=== PATIENT | female | born 1930 | race Caucasian/White ===

== ENCOUNTER 2017-10-24 20:59 | Inpatient (IN) | payer MEDICARE, MEDICAID ==
[2017-10-24] MEDS ORDERED: Ondansetron ODT 4 MG TAB ONE (21:19)
[2017-10-25] MEDS ORDERED: Hydrocortisone Sod Succ/PF 100 mg/2 ml Vial ONE (00:24)
[2017-10-25] MEDS ORDERED: Hydrocortisone Sod Succ/PF 100 mg/2 ml Vial IVP SCH (00:30)
[2017-10-25 00:58] LABS: #Lymphocytes 0.9 thou/uL (1.20-3.40); #Neutrophils 17.3 thou/uL (1.40-6.50); %Basophils 0.2 % (0.0-1.0); %Eosinophils 0.2 % (0.0-10.0); %Lymphocytes 4.6 % (21.0-51.0); %Monocytes 4.9 % (0.0-10.0); %Neutrophils 90.2 % (42.0-75.0); Hemoglobin 12.9 g/dL (12.0-16.0); Mean Corpuscular HGB CONC 31.8 g/dL (32.0-36.0); Mean Corpuscular Hemoglobin 29.2 pg (27.0-31.0); Mean Corpuscular Volume 91.7 fl (81.0-99.0); Mean Platelet Volume 6.7 fL (7.4-10.4); Platelet Count 241 thou/uL (130-400); RBC Distribution Width 13.9 % (11.5-14.5); Red Blood Cell (RBC) Count 4.42 mill/uL (4.20-5.40); White Blood Cell (WBC) Count 19.2 thou/uL (4.8-10.8)
[2017-10-25] MEDS ORDERED: Calcium Carbonate 500 MG ChewTAB PO PRN (01:07)
[2017-10-25] MEDS ORDERED: Ondansetron ODT 4 MG TAB SL PRN (01:07)
[2017-10-25] MEDS ORDERED: Acetaminophen 325 MG TAB PO PRN ×2 (01:07)
[2017-10-25] MEDS ORDERED: Senokot 8.6 MG TAB PO PRN (01:07)
[2017-10-25] MEDS ORDERED: Acetaminophen 650 MG Suppository PR PRN (01:07)
[2017-10-25] MEDS ORDERED: Ondansetron HCl/PF 4 MG/2 ML Vial IVP PRN ×2 (01:07)
[2017-10-25] MEDS ORDERED: Mag-Al 1200 mg/1200 mg/30 ML UDCUP PO PRN (01:07)
[2017-10-25] MEDS ORDERED: Piperacillin/Tazobactam 3.375 GM in Sodium Chloride 0.9% 100 ML IVPB SCH ×2 (01:15→06:00)
[2017-10-25] MEDS ORDERED: Sodium Chloride 0.9% 1,000 ML IV SCH (01:15)
[2017-10-25] MEDS ORDERED: DOPamine 400 MG/D5W 250 ML 250 ML IVPB SCH ×2 (01:15)
[2017-10-25] MEDS: Dextrose 5 % And 0.9 % NaCl 1,000 ML IV SCH ×3 (01:17→18:39)
[2017-10-25 01:20] LABS: ALT (SGPT) 26 U/L (8-55); AST (SGOT) 38 U/L (5-34); Albumin 3.4 g/dL (3.4-4.8); Alkaline Phosphatase 88 U/L (40-150); Anion Gap 15 mmol/L (10-20); BUN (Urea Nitrogen) 16 mg/dL (9.8-20.1); Bilirubin, Total 0.5 mg/dL (0.2-1.2); CRP (Inflammatory) 3.54 mg/dL (= or < 0.5); Calc. Creatinine Clearance 0 mL/min (70-130); Calcium 8.8 mg/dL (7.8-10.44); Carbon Dioxide 15 mmol/L (23-31); Chloride 111 mmol/L (98-107); Estimated GFR-MDRD 63; Glucose 209 mg/dL (83-110); Magnesium 1.7 mg/dL (1.6-2.6); Phosphorus 4.8 mg/dL (2.3-4.7); Potassium 4.7 mmol/L (3.5-5.1); Protein, Total 6.4 g/dL (6.0-8.3); Sodium 136 mmol/L (136-145)
--- NOTE | 2017-10-25 01:36 | HP ---
DATE OF ADMISSION: 10/24/2017 The patient was seen and examined on 10/24/2017. CHIEF COMPLAINT: Shortness of breath. PRIMARY CARE PHYSICIAN: Fátima Llanos MD HISTORY OF PRESENT ILLNESS: The patient is an 86-year-old white female with dementia and lung cancer in the past, presented to the emergency room at [facility] with above complaint. The patient is a poor historian. History was obtained from the family at the bedside. No records fr om the halfway were found. The patient currently resides at [facility]. She is currently on no medications per son, who is at the bedside. She ambulates with the help of a walker. The patient was found to have shortness of breath, for which EMS was called at the halfway. At the emergency room, she was found to have hypotension with O2 saturation of 87% on facemask. Blood p ressure continuously dropped in the emergency room to 63/39. She was subsequently started on dopamin e drip. Her workup in the emergency room was consistent with septic shock/severe sepsis from possibl e UTI. Her lactic acid in the emergency room was 5.2. She received vancomycin and Zosyn with 30 mL per kilogram bolus. She was then transferred to this facility. At this time, the patient is currently on 7.5 mg of dopamine. Her blood pressure is in systolic 80s- 90s. PAST MEDICAL HISTORY: 1. Dementia. 2. Lung cancer. 3. Dysautonomic syndrome. 4. History of thrombocytopenia. PAST SURGICAL HISTORY: 1. Hysterectomy. 2. Tonsillectomy. 3. Cholecystectomy. ALLERGIES: No known drug allergies. CURRENT MEDICATIONS: To be verified with the halfway. No list was sent to this facility. SOCIAL HISTORY: As discussed above. No alcohol, tobacco, or drug use. She is a DO NOT RESUSCITATE. There is out of hospital DNR in the chart. The son makes the decision. FAMILY HISTORY: Negative for heart disease. REVIEW OF SYSTEMS: Cannot be reliably obtained from the patient due to current cognitive status. PHYSICAL EXAMINATION: VITAL SIGNS: As discussed above. Her initial vital signs at [place] showed temperature of 96.6 w ith respiration of 36, pulse rate of 114 with a blood pressure 91/65 with O2 saturation 87% on facema sk. GENERAL: 86-year-old female in no apparent distress. Mentation somewhat improved after IV fluids. HEENT: Head, atraumatic and normocephalic. Sclerae are anicteric. Dry mucous membranes. No oral l esion. NECK: Supple. No JVD appreciated. No carotid bruit. LUNGS: Showed scattered rhonchi with diminished air entry on the right side. HEART: S1, S2 present. Regular rate and rhythm, tachycardic. 2/6 systolic murmur over the mitral a uri. ABDOMEN: Soft. Bowel sounds present. EXTREMITIES: Trace edema in bilateral lower extremities. SKIN: Warm and dry. LYMPH NODES: No palpable lymph nodes in the neck. PERIPHERAL VASCULAR: Radial pulse is palpable bilaterally, low volume. NEUROLOGY AND PSYCHIATRY: Could not be reliably done due to current cognitive status. LABORATORY AND X-RAY FINDINGS: 1. EKG by my review showed sinus tachycardia. 2. Chest x-ray by my review showed right-sided lung mass with aortic tortuosity. No infiltrate note d. 3. Urinalysis showed 21-50 wbc's with moderate leukocyte esterase, 3+ bacteria, lactic acid as discu ssed above. Troponin in the indeterminate range of 0.099. BUN 13, creatinine 0.72. 4. WBC 16.7 with a platelet count of 268, hemoglobin 12.7. 5. Blood cultures and urine cultures have been sent. 6. Stool for occult blood was positive. IMPRESSION: 1. Severe sepsis with acute organ dysfunction/septic shock, suspected secondary to urinary tract inf ection. 2. Acute hypoxic respiratory failure with a history of lung cancer. Pulmonary embolism is a possibi lity. 3. Metabolic acidosis secondary to lactic acidosis from sepsis. 4. Chronic kidney disease, stage 2. 5. Indeterminate troponins, secondary to sepsis. 6. Dementia. 7. History of lung cancer. 8. Dysautonomic syndrome. 9. Hypotension requiring pressors. 10. Hemoccult positive stool at the emergency room today. PLAN: The patient will be monitored in the intermediate care unit. We will continue dopamine. I norman d an extensive discussion with the son and other family members. They want to continue dopamine thro ugh the peripheral IV line. They do not want central line at this time. Her blood pressure is in sy stolic 80s-90s at this time. We will continue vancomycin and Zosyn with dopamine. We will add IV fl uids. We will add stress dose steroids temporarily. She may be having pulmonary embolism; however, her stool for occult blood was positive. She may not be a candidate for anticoagulation given her ag e as well. We will monitor overnight. Critical Care will be consulted. We will repeat lactic acid in a.m. Plan of care was discussed with the patient and the family members in detail. They stated understand ing.
[2017-10-25 01:38] VITALS: BMI 22.1
[2017-10-25] MEDS ORDERED: Vancomycin HCl 1 GM in Premix Bag 1 BAG IVPB SCH (02:00)
[2017-10-25] MEDS: Ondansetron ODT 4 MG TAB PO PRN ×2 (02:37→10:05)
--- NOTE | 2017-10-25 03:58 | PDOC.EVN ---
Event Note - Event Note Event Note: Advance care planning d/w with son and other family members in ER on 10/24/17. Diagnosis - Septic shock. Patient will stay DNR. No central line per family. Will continue Dopamine for now. Will add IVF/Stress dose steroids. Total time spent for advance care planning was 20 mins.
[2017-10-25] MEDS: Piperacillin/Tazobactam 3.375 GM in Sodium Chloride 0.9% 100 ML IVPB SCH ×3 (05:33→18:40)
[2017-10-25] MEDS ORDERED: Sodium Chloride 0.65% Nasal 44 ML BOT EA NARE PRN (07:45)
[2017-10-25] MEDS ORDERED: Chloraseptic Spray 180 ml Bottle PO PRN (07:45)
[2017-10-25] MEDS ORDERED: Milk Of Magnesia 30 ML UDCUP PO PRN (07:45)
[2017-10-25] MEDS ORDERED: Loratadine 10 MG TAB PO PRN (07:45)
[2017-10-25] MEDS ORDERED: Artificial Tears 18 DROP/0.9 ML EA EYE PRN (07:45)
[2017-10-25] MEDS ORDERED: Diabetic Tussin 200 MG/10 ML UDCUP PO PRN (07:45)
[2017-10-25] MEDS ORDERED: Eucerin (Mineral Oil/Petrolatum,White) 30 gm Jar TOP PRN (07:45)
[2017-10-25] MEDS ORDERED: Loperamide HCl 2 MG CAP PO PRN (07:45)
--- NOTE | 2017-10-25 08:19 | ULT ---
BILATERAL RENAL ULTRASOUND: Date: 10/25/17 COMPARISON: None. HISTORY: Septic shock, urinary tract infection, evaluate for obstructive uropathy. FINDINGS: Left kidney measures 11.0 cm in craniocaudal dimension and demonstrates no stone, hydronephrosis, or mass. Urinary bladder appears grossly unremarkable, but is poorly assessed secondary to decompression. Right kidney measures 10.1 cm in craniocaudal dimension and demonstrates no evidence for stone, hydro nephrosis, or mass. IMPRESSION: No acute findings. POS: [facility]HT[facility]
[2017-10-25] MEDS ORDERED: Famotidine 20 MG TAB PO SCH (09:00)
[2017-10-25 09:02] LABS: #Lymphocytes 1.3 thou/uL (1.20-3.40); #Monocytes 1.3 thou/uL (0.11-0.59); #Neutrophils 15.5 thou/uL (1.40-6.50); %Basophils 0.1 % (0.0-1.0); %Eosinophils 0.1 % (0.0-10.0); %Lymphocytes 7.4 % (21.0-51.0); %Monocytes 7.1 % (0.0-10.0); %Neutrophils 85.3 % (42.0-75.0); Hemoglobin 12.5 g/dL (12.0-16.0); Mean Corpuscular HGB CONC 31.6 g/dL (32.0-36.0); Mean Corpuscular Hemoglobin 29.3 pg (27.0-31.0); Mean Corpuscular Volume 92.8 fl (81.0-99.0); Mean Platelet Volume 6.7 fL (7.4-10.4); Platelet Count 211 thou/uL (130-400); RBC Distribution Width 13.9 % (11.5-14.5); Red Blood Cell (RBC) Count 4.28 mill/uL (4.20-5.40); White Blood Cell (WBC) Count 18.1 thou/uL (4.8-10.8)
[2017-10-25 09:07] LABS: Anion Gap 15 mmol/L (10-20); BUN (Urea Nitrogen) 17 mg/dL (9.8-20.1); Calc. Creatinine Clearance 39 mL/min (70-130); Calcium 8.6 mg/dL (7.8-10.44); Carbon Dioxide 16 mmol/L (23-31); Chloride 112 mmol/L (98-107); Estimated GFR-MDRD 57; Glucose 258 mg/dL (83-110); Potassium 4.9 mmol/L (3.5-5.1); Sodium 138 mmol/L (136-145)
[2017-10-25 09:08] LABS: Lactic Acid 5.8 mmol/L (0.5-2.2)
[2017-10-25 09:17] LABS: Troponin I 0.554 ng/mL (< 0.028)
[2017-10-25] MEDS: Docusate 100 MG CAP PO SCH ×2 (09:57→20:22)
[2017-10-25] MEDS: Hydrocortisone Sod Succ/PF 100 mg/2 ml Vial IVP SCH ×2 (10:04→20:21)
[2017-10-25] MEDS: Morphine 4 MG/ML VIAL SLOW IVP PRN ×2 (10:05→19:06)
--- NOTE | 2017-10-25 10:50 | PDOC.PN ---
- Subjective Encounter Start Date: 10/25/17 Encounter Start Time: 10:20 -: old records requested/rev Patient seen and examined for sepsis. No overnight events, family bedside - Objective Resuscitation Status: Resuscitation Status DNR:Do Not Resuscitate MAR Reviewed: Yes Vital Signs & Weight: Vital Signs (12 hours) Temp Pulse Resp BP Pulse Ox 10/25/17 07:39 97.0 F L 91 18 95 10/25/17 07:27 97.0 F L 91 18 84/54 L 96 10/25/17 03:00 97.8 F 108 H 18 151/74 H 96 10/25/17 00:00 97.4 F L 127 H 20 105/68 100 Weight Weight 128 lb 11.2 oz I&O: 10/24/17 10/25/17 10/26/17 06:59 06:59 06:59 Intake Total 750 Output Total 290 Balance 460 Result Diagrams: 10/25/17 08:30 10/25/17 08:30 Radiology Reviewed by me: Yes (chest xray) EKG Reviewed by me: Yes (nsr) Phys Exam - Physical Examination Constitutional: NAD HEENT: PERRLA, sclera anicteric dry MM Neck: no JVD, supple Respiratory: no wheezing, no rales, no rhonchi Cardiovascular: RRR, no significant murmur, no rub Gastrointestinal: soft, no distention, positive bowel sounds Musculoskeletal: no edema, pulses present unable to assess due to encephalopathy and dementia Psychiatric: normal affect Skin: no rash, normal turgor Dx/Plan (1) Encephalopathy acute Code(s): G93.40 - ENCEPHALOPATHY, UNSPECIFIED Status: Acute (2) Acute respiratory failure with hypoxia Code(s): J96.01 - ACUTE RESPIRATORY FAILURE WITH HYPOXIA Status: Acute (3) Demand ischemia Code(s): I24.8 - OTHER FORMS OF ACUTE ISCHEMIC HEART DISEASE Status: Acute (4) Hypotension Status: Acute (5) Lactic acidosis Code(s): E87.2 - ACIDOSIS Status: Acute (6) Occult blood positive stool Status: Acute (7) Sepsis with acute organ dysfunction Code(s): A41.9 - SEPSIS, UNSPECIFIED ORGANISM; R65.20 - SEVERE SEPSIS WITHOUT SEPTIC SHOCK Status: Acute (8) Septic shock Code(s): A41.9 - SEPSIS, UNSPECIFIED ORGANISM; R65.21 - SEVERE SEPSIS WITH SEPTIC SHOCK Status: Acute (9) CKD (chronic kidney disease) stage 2, GFR 60-89 ml/min Code(s): N18.2 - CHRONIC KIDNEY DISEASE, STAGE 2 (MILD) Status: Chronic (10) Dementia Code(s): F03.90 - UNSPECIFIED DEMENTIA WITHOUT BEHAVIORAL DISTURBANCE Status: Chronic (11) H/O: lung cancer Code(s): Z85.118 - PERSONAL HISTORY OF MALIGNANT NEOPLASM OF BRONCHUS AND LUNG Status: Chronic - Plan cont current plan of care, plan discussed w/ family, continue antibiotics * continue dopamin for low BP * family does not want central line * medication reviewed as below * symptomatic treatment * continue vancomycin and zosyn * echo for elevated troponin * add aspirin * repeat labs tomorrow * follow culture * prognosis guarded * pt is DNR * continue IVF. Review of Systems - Review of Systems Other: unable to review due to encephalopathy and dementia - Medications/Allergies Allergies/Adverse Reactions: Allergies Allergy/AdvReac Type Severity Reaction Status Date / Time No Known Allergies Allergy Verified 02/03/15 12:05 Medications: Current Medications Acetaminophen (Tylenol) 650 mg PO Q4H PRN PRN Reason: Headache/Fever or Pain Acetaminophen (Tylenol) 650 mg ND Q4H PRN PRN Reason: Headache/Fever or Pain Al Hydroxide/Mg Hydroxide (Maalox) 30 ml PO Q6H PRN PRN Reason: Heartburn or Indigestion Albuterol/Ipratropium (Duoneb) 3 ml NEB [id number] PRN PRN Reason: SOB &/or Wheezing Artificial Tears (Tears Naturale) 0 drop EA EYE PRN PRN PRN Reason: Dry Eyes Aspirin (Aspirin Chewable) 81 mg PO DAILY [facility] Calcium Carbonate (Tums) 1,000 mg PO Q4H PRN PRN Reason: Heartburn or Indigestion Docusate Sodium (Colace) 100 mg PO BID [facility] Last Admin: 10/25/17 09:57 Dose: Not Given Famotidine (Pepcid) 20 mg PO DAILY [facility] Last Admin: 10/25/17 09:57 Dose: Not Given Guaifenesin (Robitussin Sf) 200 mg PO Q4H PRN PRN Reason: Cough Hydrocortisone Sodium Succinate (Solu-Cortef) 50 mg IVP BID [facility] Last Admin: 10/25/17 10:04 Dose: 50 mg Dextrose/Sodium Chloride (D5 0.9% Ns) 1,000 mls @ 125 mls/hr IV .Q8H CHAZ Last Admin: 10/25/17 05:38 Dose: 1,000 mls Piperacillin Sod/Tazobactam (Sod 3.375 gm/ Sodium Chloride) 100 mls @ 200 mls/ hr IVPB Q6HR CHAZ Last Admin: 10/25/17 05:33 Dose: 100 mls Vancomycin HCl 750 mg/ Sodium (Chloride) 250 mls @ 200 mls/hr IVPB 1400 CHAZ Dopamine HCl/Dextrose (Dopamine/D5w) 250 mls @ 10.946 mls/hr IVPB INF CHAZ; 5 MCG/KG/MIN PRN Reason: Protocol Last Admin: 10/25/17 10:12 Dose: 250 mls Loperamide HCl (Imodium) 2 mg PO PRN PRN PRN Reason: Diarrhea/Loose Stools Loratadine (Claritin) 10 mg PO DAILYPRN PRN PRN Reason: Sinus Symptoms Magnesium Hydroxide (Milk Of Magnesium) 30 ml PO DAILYPRN PRN PRN Reason: Constipation Mineral Oil/White Petrolatum (Eucerin Cream) 0 gm TOP BIDPRN PRN PRN Reason: Dry Skin Miscellaneous Medication (Pharmacy To Dose) 1 each IVPB ONE PRN PRN Reason: Pharmacy to dose Stop: 11/04/17 01:06 Morphine Sulfate (Morphine) 2 mg SLOW IVP Q30MIN PRN PRN Reason: Breakthrough Pain Last Admin: 10/25/17 10:05 Dose: 2 mg Ondansetron HCl (Zofran Odt) 4 mg PO Q6H PRN PRN Reason: Nausea/Vomiting Last Admin: 10/25/17 10:05 Dose: 4 mg Ondansetron HCl (Zofran) 4 mg IVP Q6H PRN PRN Reason: Nausea/Vomiting Phenol (Chloraseptic [place] 180 Ml Bot) 0 ml PO PRN PRN PRN Reason: Sore Throat Senna (Senokot) 2 tab PO HSPRN PRN PRN Reason: Constipation Sodium Chloride ([place] Nasal [place] 0.65%) 0 ml EA NARE QIDPRN PRN PRN Reason: Nasal Congestion
--- NOTE | 2017-10-25 10:51 | CON ---
DATE OF CONSULTATION: 10/25/2017 Seventy minutes of time was spent performing this consultation. At that time, greater than 50% was s pent with the patient and/or in the patient's unit in the hospital. CONSULTING PHYSICIAN: Hospitalist group. REASON FOR CONSULTATION: IMCU placement. HISTORY OF PRESENT ILLNESS: This is an 86-year-old female from [place] who was brought to the [facility] yesterday with shortness of breath and hypotension. She lives in a residential. She was fo und to have urinary tract infection. Today, she is more awake. She says she has been having pain al dhiraj her right chest, extending down to her abdomen. She saw Dr. Stone Yang in the past. She was diagnosed with lung cancer about 2-1/2 years ago. This was by bronchoscopy. 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 She chose not to treat this and has had a relatively good quality of life since that time. PAST MEDICAL HISTORY: 1. Dementia. 2. Lung cancer. 3. Dysautonomic syndrome. 4. Thrombocytopenia. PAST SURGICAL HISTORY: Hysterectomy, tonsillectomy, cholecystectomy, bronchoscopy. ALLERGIES: None. SOCIAL HISTORY: Does not smoke, does not consume alcohol. She has a DNR order. FAMILY MEDICAL HISTORY: Negative. REVIEW OF SYSTEMS: Remarkable for pain, failure to thrive. MEDICATIONS PRIOR TO ADMISSION: List unavailable for review at this time. PHYSICAL EXAMINATION: VITAL SIGNS: Temperature 97.0, pulse 91, respirations 18, O2 sat 95% on 3 liters, blood pressure 84/ 54. She is currently on dopamine at 5 mcg per minute through a peripheral IV. GENERAL: She is awake and alert. She is nauseated and is vomiting. HEENT: Pupils react. Sclerae anicteric. Oropharynx clear. NECK: No adenopathy or JVD. LUNGS: Almost absent breath sounds in the right upper lobe, few breath sounds in the right lower lob e. Left side is clear. She has palpable pain over most of the rib cage in the right. CARDIOVASCULAR: S1, S2 regular. ABDOMEN: Soft. EXTREMITIES: No edema. LABORATORY DATA: White blood cell count 18.1, hematocrit 39.7, platelet count 211 with 85% neutrophi ls. Sodium 130, potassium 4.9, chloride 112, CO2 16, BUN 17, creatinine 0.9, glucose 258. Lactate 5 .8, phosphorus 4.8, alkaline phosphatase 88. Troponin 0.554. Urinalysis demonstrated 21-50 white bl ood cells. X-RAY FINDINGS: Chest x-ray showed huge increase in the right apical mass compared to films from 201 5, also looks like there is a mass in the right base. ASSESSMENT: 1. Urinary tract infection. 2. Septic shock. 3. Advancing lung cancer and I suspect she has metastatic disease in her ribs given the degree of pa in she has there. RECOMMENDATIONS: Family is very realistic and does not want to extend this longer than necessary. F or the time being, we are continuing antibiotics and low dose dopamine. There are other family membe rs that are waiting to arrive. I think she needs pain management. I suspect the pain is from metast atic disease. I will ask the palliative care people to get involved to see how the family wants to p magalys.
[2017-10-25] MEDS ORDERED: Vancomycin HCl 750 MG in Sodium Chloride 0.9% 250 ML 250 ML IVPB SCH (14:00)
[2017-10-25 23:54] VITALS: BP 72/48; TEMP 97.1
[2017-10-26] MEDS: Piperacillin/Tazobactam 3.375 GM in Sodium Chloride 0.9% 100 ML IVPB SCH (00:43)
[2017-10-26] MEDS: Dextrose 5 % And 0.9 % NaCl 1,000 ML IV SCH (00:44)
[2017-10-26] MEDS ORDERED: Morphine 10 MG/0.5 ML ORAL SYRINGE SL SCH (02:30)
--- NOTE | 2017-10-28 12:46 | DS ---
PRIMARY CARE PHYSICIAN: Dr. Llanos DATE OF ADMISSION: 10/24/2017 DATE OF : 10/26/2017 at 03:16 a.m. PRIMARY CAUSE OF : Acute respiratory failure with hypoxia, acute metabolic encephalopathy, sept ic shock and urinary tract infection, non-STEMI due to demand ischemia and lactic acidosis due to sep sis. CONTRIBUTING DIAGNOSES: Metastatic lung cancer and Alzheimer's dementia. PRIMARY PROCEDURES/OPERATIONS: None. RADIOLOGICAL INVESTIGATION: Renal ultrasound. SIGNIFICANT LABORATORY DATA: WBC 18.1, lactic acid 6.1, troponin 0.554. CONTRAINDICATIONS: None. CODE STATUS: The patient was DNR. Patient's family member DID NOT WANT TO BE INTUBATED or does not require any central line and they are not planning to do any tube feeding. DISCHARGE PLAN: The patient is . HOSPITAL COURSE: An 86-year-old female who was admitted by Dr. Aman Londono. Please see his H&P for further detail. The patient was admitted for septic shock. She was requiring dopamine drip for impr oving blood pressure. Patient was DNR. Patient's family member did not want to be aggressive on her . They do not want to do central line as well as any kind of resuscitation or tube feeding. The pat ient was treated with broad spectrum antibiotic therapy. Patient's condition was deteriorated and sh e was on 10/26/2017 at 03:16 a.m.
== END 2017-10-26 03:16 | disposition expired | DRG 871 ==
LOC: ERS 20:59 → IMCU/EMU 22:37
PROVIDERS: ADMIT Internal Medicine; ATTEND Internal Medicine
PROC: 3E033XZ Introduction of Vasopressor into Peripheral Vein, Percutaneous Approach (ICD-10-PCS; principal; 2017-10-24)
DX: A41.9 Sepsis, unspecified organism (principal); J96.01 Acute respiratory failure with hypoxia; R65.21 Severe sepsis with septic shock; G93.41 Metabolic encephalopathy; I21.A1 Myocardial infarction type 2; E87.2 Acidosis; N39.0 Urinary tract infection, site not specified; C34.90 Malignant neoplasm of unspecified part of unspecified bronchus or lung; C79.51 Secondary malignant neoplasm of bone; N18.2 Chronic kidney disease, stage 2 (mild); I95.9 Hypotension, unspecified; R19.5 Other fecal abnormalities; B96.89 Other specified bacterial agents as the cause of diseases classified elsewhere; G30.9 Alzheimer's disease, unspecified; F02.80 Dementia in other diseases classified elsewhere, unspecified severity, without behavioral disturbance, psychotic disturbance, mood disturbance, and anxiety; Z85.118 Personal history of other malignant neoplasm of bronchus and lung; Z66 Do not resuscitate
CPT/HCPCS: 36415; 76770; 80053; 83605; 83735; 84100; 84484; 85025; 86140; 93005; 94760; 96365; 96366; 96375; J1720; J2543; J3370; J7050; Q0162